=== PATIENT | male | born 1950 | race Caucasian/White ===

== ENCOUNTER 2021-09-01 20:28 | Emergency (ER) | payer MEDICAID ==
[~2021-09-01] VITALS: Ht 167.6 cm; Wt 65.0 kg
[2021-09-02] MEDS ORDERED: IBUPROFEN 800MG TABLET PO ONE (01:00)
[2021-09-02 04:23] VITALS: BP 146/77
== END 2021-09-02 04:24 | disposition home or self-care (01) ==
LOC: ER 20:28
DX: S09.8XXA Other specified injuries of head, initial encounter (principal); S16.1XXA Strain of muscle, fascia and tendon at neck level, initial encounter; M54.59 Other low back pain; M25.511 Pain in right shoulder; M79.662 Pain in left lower leg; V03.90XA Pedestrian on foot injured in collision with car, pick-up truck or van, unspecified whether traffic or nontraffic accident, initial encounter; Y93.01 Activity, walking, marching and hiking; Y92.488 Other paved roadways as the place of occurrence of the external cause; I10 Essential (primary) hypertension; E11.9 Type 2 diabetes mellitus without complications
CPT/HCPCS: 73060; 73552; 99284

== ENCOUNTER 2022-09-30 08:43 | Inpatient (IN) | payer MEDICAID ==
[~2022-09-30] VITALS: Ht 162.6 cm; Wt 63.5 kg
[2022-09-30] VITALS (47 sets, daily range): BP systolic 103–205; BP diastolic 53–115
[~2022-09-30 08:43] MED LIST: AMLO10TA80 PO; ASPI-1160 PO; CLOP-31 PO; HYDR-4135 PO
[2022-09-30 09:21] LABS: BASOPHILS % 0.8 % (0.0-2.0); EOSINOPHILS % 3.2 % (0.0-5.0); HEMATOCRIT. 31.3 % (42.0-52.0); LYMPHOCYTES % 26.2 % (20.0-50.0); MEAN CORPUSCULAR HEMOGLOBIN 31.2 pg (28.0-32.0); MEAN CORPUSCULAR VOLUME 88.5 fL (80.0-94.0); MEAN PLATELET VOLUME 7.4 fl (7.4-10.4); MONOCYTES % 7.8 % (2.0-8.0); PLATELET 302 x1000/uL (130-400); RED BLOOD CELL COUNT 3.54 mill/uL (4.7-6.1); RED CELL DISTRIBUTION WIDTH 13.8 % (11.6-14.6)
[2022-09-30 09:30] LABS: CHLORIDE 113 mEq/L (98-107)
[2022-09-30] MEDS ORDERED: FUROSEMIDE 40MG/4ML VIAL IVP ONE (09:30)
[2022-09-30] MEDS ORDERED: NITROGLYCERIN 50MG PREMIX 250 ML IV ONE (10:15)
[2022-09-30] MEDS ORDERED: ENOXAPARIN 80MG/0.8ML SYR SUBCUT ONE (10:15)
[2022-09-30] MEDS: NITROGLYCERIN 50MG PREMIX 250 ML IV NR ×2 (11:30→16:54)
[2022-09-30] MEDS ORDERED: ACETAMINOPHEN 325MG TABLET PO PRN (12:30)
[2022-09-30] MEDS ORDERED: MORPHINE SULFATE 2 MG/ML CPJ (NOT FOR IM USE) IV PRN (12:30)
[2022-09-30] MEDS ORDERED: DIPHENHYDRAMINE 50MG/ML VIAL IV PRN (12:30)
[2022-09-30] MEDS ORDERED: ONDANSETRON HCL 4MG/2ML INJ IV PRN (12:30)
[2022-09-30] MEDS ORDERED: IPRATROPIUM/ALBUTEROL 0.5-3(2.5)MG/3ML NEB HHN PRN (12:30)
[2022-09-30] MEDS ORDERED: NALOXONE HCL 0.4MG/ML VIAL IV PRN (12:45)
[2022-09-30] MEDS ORDERED: NITROGLYCERIN 50MG PREMIX 250 ML IV SCH (16:00)
[2022-09-30] MEDS: HYDRALAZINE HCL 50MG TABLET PO SCH ×2 (16:16→21:49)
[2022-09-30] MEDS ORDERED: NITROGLYCERIN 50MG PREMIX 250 ML IV PRN (16:24)
[2022-09-30] MEDS: FUROSEMIDE 40MG/4ML VIAL IV SCH (16:33)
[2022-10-01] VITALS (73 sets, daily range): BP systolic 76–164; BP diastolic 44–119
[2022-10-01] MEDS: HYDRALAZINE HCL 50MG TABLET PO SCH ×3 (05:50→21:48)
[2022-10-01 06:44] LABS: EOSINOPHILS % 3.3 % (0.0-5.0); HEMATOCRIT. 30.7 % (42.0-52.0); HEMOGLOBIN. 10.8 g/dL (14.0-18.0); LYMPHOCYTES % 29.8 % (20.0-50.0); MEAN CORPUSCULAR HEMOGLOBIN 30.8 pg (28.0-32.0); MEAN PLATELET VOLUME 7.8 fl (7.4-10.4); MONOCYTES % 8.4 % (2.0-8.0); NEUTROPHILS % 57.5 % (40.0-76.0); PLATELET 316 x1000/uL (130-400); RED BLOOD CELL COUNT 3.49 mill/uL (4.7-6.1); RED CELL DISTRIBUTION WIDTH 13.6 % (11.6-14.6)
[2022-10-01] MEDS: NITROGLYCERIN 50MG PREMIX 250 ML IV NR (07:03)
[2022-10-01 07:32] LABS: CHLORIDE 108 mEq/L (98-107)
[2022-10-01] MEDS: CLOPIDOGREL 75MG TABLET PO SCH (08:39)
[2022-10-01] MEDS: ASPIRIN 81MG TABLET PO SCH (08:40)
[2022-10-01] MEDS: SPIRONOLACTONE 25MG TABLET PO SCH (08:40)
[2022-10-01] MEDS: FUROSEMIDE 40MG/4ML VIAL IV SCH (08:40)
[2022-10-01] MEDS: LOSARTAN POTASSIUM 25 MG TABLET PO SCH (08:40)
[2022-10-01] MEDS: AMLODIPINE 10MG TABLET PO SCH (08:40)
[2022-10-01] MEDS: CARVEDILOL 3.125 MG TABLET PO SCH ×2 (08:40→21:48)
[2022-10-01] MEDS ORDERED: DEXTROSE 50% WATER 50ML SYRINGE IV PRN (10:30)
[2022-10-01] MEDS ORDERED: HYDRALAZINE 20MG/ML VIAL IV PRN (12:45)
[2022-10-01] MEDS ORDERED: BLOOD SUGAR DIAGNOSTIC STRIP TEST SCH (12:50)
[2022-10-01] MEDS: BLOOD SUGAR DIAGNOSTIC STRIP TEST SCH ×3 (12:50→21:38)
[2022-10-01] MEDS ORDERED: POTASSIUM CHLORIDE 20MEQ TABLET SR PO NR (13:00)
[2022-10-01] MEDS: INSULIN LISPRO 100 UNITS/ML SUBCUT SCH ×3 (13:20→21:47)
[2022-10-01] MEDS ORDERED: FUROSEMIDE 40MG/4ML VIAL IV SCH (18:00)
[2022-10-02] VITALS (11 sets, daily range): BP systolic 110–158; BP diastolic 52–91
[2022-10-02] MEDS: HYDRALAZINE HCL 50MG TABLET PO SCH ×2 (05:13→16:09)
[2022-10-02] MEDS: FUROSEMIDE 100MG/10ML VIAL IV SCH ×2 (06:14→17:09)
[2022-10-02] MEDS: BLOOD SUGAR DIAGNOSTIC STRIP TEST SCH ×3 (06:21→16:50)
[2022-10-02 06:23] LABS: BASOPHILS % 0.7 % (0.0-2.0); HEMATOCRIT. 29.2 % (42.0-52.0); HEMOGLOBIN. 10.3 g/dL (14.0-18.0); LYMPHOCYTES % 28.1 % (20.0-50.0); MEAN CORPUSCULAR HEMOGLOBIN 31.1 pg (28.0-32.0); MEAN CORPUSCULAR VOLUME 88.2 fL (80.0-94.0); MEAN PLATELET VOLUME 7.8 fl (7.4-10.4); MONOCYTES % 9.3 % (2.0-8.0); NEUTROPHILS % 58.9 % (40.0-76.0); PLATELET 265 x1000/uL (130-400); RED BLOOD CELL COUNT 3.31 mill/uL (4.7-6.1); RED CELL DISTRIBUTION WIDTH 13.8 % (11.6-14.6)
[2022-10-02 06:46] LABS: CHLORIDE 108 mEq/L (98-107)
[2022-10-02] MEDS: INSULIN LISPRO 100 UNITS/ML SUBCUT SCH ×3 (07:20→17:38)
[2022-10-02] MEDS ORDERED: LIDOCAINE HCL/PF 2% 20MG/ML 5 ML/VIAL ONE (08:44)
[2022-10-02] MEDS ORDERED: VERAPAMIL HCL 2.5 MG/1 ML 2ML VIAL IV ONE (08:44)
[2022-10-02] MEDS ORDERED: HEPARIN 1000 UNITS/ML 10ML ONE (08:44)
[2022-10-02] MEDS ORDERED: DIPHENHYDRAMINE 50MG/ML VIAL ONE (08:44)
[2022-10-02] MEDS ORDERED: IODIXANOL 320MG/ML 100 ML BOTTLE IV ONE (08:44)
[2022-10-02] MEDS ORDERED: MIDAZOLAM HCL 2 MG/2 ML VIAL ONE (08:45)
[2022-10-02] MEDS ORDERED: FENTANYL CITRATE/PF 50MCG/ML 2ML VIAL ONE (08:45)
[2022-10-02] MEDS ORDERED: NITROGLYCERIN 50MCG/ML 10ML VIAL (CATH LAB) IV ONE (10:00)
[2022-10-02] MEDS ORDERED: NICARDIPINE 100MCG/ML 10ML VIAL (CATH LAB) IV ONE (10:00)
[2022-10-02] MEDS ORDERED: ATROPINE SULFATE 1MG/10ML SYR IV PRN (10:30)
[2022-10-02] MEDS ORDERED: ACETAMINOPHEN 325MG TABLET PO PRN (10:30)
[2022-10-02] MEDS: ASPIRIN 81MG TABLET PO SCH (12:06)
[2022-10-02] MEDS: CLOPIDOGREL 75MG TABLET PO SCH (12:06)
[2022-10-02] MEDS: LOSARTAN POTASSIUM 25 MG TABLET PO SCH (12:07)
[2022-10-02] MEDS: AMLODIPINE 10MG TABLET PO SCH (12:07)
[2022-10-02] MEDS: CARVEDILOL 3.125 MG TABLET PO SCH (12:08)
[2022-10-02] MEDS: SPIRONOLACTONE 25MG TABLET PO SCH (12:08)
== END 2022-10-02 20:47 | disposition short-term general hospital (02) | DRG 192 ==
LOC: ER 08:53 → CVICU 12:09 → EDBEDREQ 12:11 → EDBEDREQTM 12:11 → EDBEDREQSVC 12:11 → 3WST 10-01 20:40
PROVIDERS: ADMIT Internal Medicine; ATTEND Internal Medicine
PROC: B2111ZZ Fluoroscopy of Multiple Coronary Arteries using Low Osmolar Contrast (ICD-10-PCS; principal; 2022-10-02)
PROC: 4A023N7 Measurement of Cardiac Sampling and Pressure, Left Heart, Percutaneous Approach (ICD-10-PCS; 2022-10-02)
PROC: 4A033BC Measurement of Arterial Pressure, Coronary, Percutaneous Approach (ICD-10-PCS; 2022-10-02)
DX: I11.0 Hypertensive heart disease with heart failure (principal); I21.4 Non-ST elevation (NSTEMI) myocardial infarction; I44.2 Atrioventricular block, complete; I16.1 Hypertensive emergency; I50.23 Acute on chronic systolic (congestive) heart failure; E11.9 Type 2 diabetes mellitus without complications; E78.5 Hyperlipidemia, unspecified; Z20.822 Contact with and (suspected) exposure to COVID-19; I25.10 Atherosclerotic heart disease of native coronary artery without angina pectoris; Z86.73 Personal history of transient ischemic attack (TIA), and cerebral infarction without residual deficits; Z95.0 Presence of cardiac pacemaker; Z90.49 Acquired absence of other specified parts of digestive tract; Z98.61 Coronary angioplasty status
CPT/HCPCS: 36415; 71045; 80048; 80053; 82962; 83036; 83880; 84484; 85025; 85347; 87426; 93005; 93308; 93458; 93571; 93572; 93970; 99291; C1769; C1887; C1893; J0360; J1200; J1644; J1650; J1815; J1940; J2250; J3010; J3490; Q9967

== ENCOUNTER 2025-04-15 16:45 | Inpatient (IN) | payer MEDICAID ==
[~2025-04-15] VITALS: Ht 162.6 cm; Wt 55.0 kg
[2025-04-15] VITALS (12 sets, daily range): BP systolic 52–78; BP diastolic 15–52; PULSE 0–133; RESP 0–43; TEMP 31.8–32.3592; O2SAT 76–100
[~2025-04-15 16:45] MED LIST changes: +COR12 PO; -HYDR-4135 PO; +HYDR50TA39 PO; +ISOS30TA91 PO; +LOSA25TA26 PO
[2025-04-15] MEDS ORDERED: NOREPINEPHRINE 8MG/250ML PMX 250 ML IV ONE (16:52)
[2025-04-15] MEDS: SODIUM CHLORIDE 0.9% (SEPSIS BOLUS) IV ONE (17:24)
[2025-04-15] MEDS: NOREPINEPHRINE 8MG/250ML PMX 250 ML IV ONE (17:28)
[2025-04-15 17:45] LABS: HEMATOCRIT. 30.6 % (42.0-52.0); HEMOGLOBIN. 9.6 g/dL (14.0-18.0); MEAN PLATELET VOLUME 9.5 fl (7.4-10.4); PLATELET 154 x1000/uL (130-400); RED BLOOD CELL COUNT 3.33 mill/uL (4.7-6.1); RED CELL DISTRIBUTION WIDTH 15.0 % (11.6-14.6)
[2025-04-15] MEDS: PROPOFOL 10MG/ML 100ML 100 ML IV SCH (17:52)
[2025-04-15 17:53] LABS: UREA NITROGEN BLOOD 57 mg/dL (9-23)
[2025-04-15] MEDS: PIPERACILLIN/TAZO 3.375G/50ML 50 ML IV ONE (17:53)
[2025-04-15 17:55] LABS: ASPARTATE AMINOTRANSFERASE 141 IU/L (<34); BILIRUBIN DIRECT 0.2 mg/dL (<=3.0); BILIRUBIN TOTAL 0.4 mg/dL (0.1-1.0); PROTEIN TOTAL 5.3 g/dL (6.0-8.3)
[2025-04-15 17:58] LABS: CREATININE 1.7 mg/dL (0.6-1.3)
[2025-04-15 17:59] LABS: TROPONIN I HIGH SENSITIVITY 72 ng/L (3.0-53)
[2025-04-15] MEDS ORDERED: ACETAMINOPHEN 650MG SUPP PR PRN (18:00)
[2025-04-15] MEDS ORDERED: ACETAMINOPHEN 650MG/20.3ML UDC NG PRN (18:00)
[2025-04-15 18:04] LABS: INR 1.2
[2025-04-15 18:07] LABS: BAND% 1.0 % (1.0-6.0); EOSINOPHILS % MANUAL 2.0 % (0.0-5.0); LYMPHOCYTES % MANUAL 68.0 % (20.0-50.0); MONOCYTES % MANUAL 2.0 % (2.0-8.0); NEUTROPHILS % MANUAL 27.0 % (45.0-75.0); PLATELET ESTIMATE NORMAL
[2025-04-15 18:11] LABS: BG DEOXYHEMOGLOBIN 4.7 % (0.0-5.0)
[2025-04-15] MEDS: VANCOMYCIN 1G PREMIX 200 ML IV ONE (18:59)
[2025-04-15] MEDS ORDERED: DOXYCYCLINE 100MG/100ML 100 ML IV SCH (19:15)
[2025-04-15] MEDS ORDERED: FENTANYL 2500MCG/250ML PMX 250 ML IV PRN ×2 (19:15→21:00)
[2025-04-15] MEDS: FENTANYL 2500MCG/250ML PMX 250 ML IV PRN (19:46)
[2025-04-15 19:54] LABS: CREATININE 1.7 mg/dL (0.6-1.3)
[2025-04-15 19:55] LABS: UREA NITROGEN BLOOD 60.0 mg/dL (9-23)
[2025-04-15 19:57] LABS: PHOSPHORUS 6.6 mg/dL (2.5-4.9)
[2025-04-15] MEDS ORDERED: DOCUSATE SODIUM 100MG CAPSULE PO PRN (20:30)
[2025-04-15] MEDS ORDERED: PROPOFOL 10MG/ML 100ML 100 ML IV PRN ×2 (20:30→21:15)
[2025-04-15] MEDS ORDERED: MAGNESIUM/ALUMINUM HYDROXIDE/SIMETHICONE 30ML UDC PO PRN (20:30)
[2025-04-15] MEDS ORDERED: SODIUM BICARBONATE 8.4% 50MEQ/50ML SYR IV NR (20:30)
[2025-04-15] MEDS ORDERED: GUAIFENESIN 200MG/10ML SUGAR FREE UDC PO PRN (20:30)
[2025-04-15] MEDS ORDERED: ACETAMINOPHEN 325MG TABLET PO PRN ×2 (20:30)
[2025-04-15] MEDS ORDERED: ONDANSETRON HCL 4MG/2ML INJ IV PRN (20:30)
[2025-04-15] MEDS ORDERED: DEXTROSE 50% WATER 50ML SYRINGE IV PRN ×2 (20:30→21:30)
[2025-04-15] MEDS ORDERED: IPRATROPIUM/ALBUTEROL 0.5-3(2.5)MG/3ML NEB NEB PRN (20:30)
[2025-04-15] MEDS ORDERED: DOPAMINE 400MG/250ML PREMIX 250 ML IV PRN (20:30)
[2025-04-15 20:33] LABS: TROPONIN I HIGH SENSITIVITY 124 ng/L (3.0-53)
[2025-04-15] MEDS ORDERED: NOREPINEPHRINE 8MG/250ML PMX 250 ML IV PRN (20:56)
[2025-04-15] MEDS ORDERED: VASOPRESSIN 20 UNIT in SODIUM CHLORIDE 0.9% 99 ML IV PRN (21:00)
[2025-04-15] MEDS ORDERED: EPINEPHRINE 5 MG in SODIUM CHLORIDE 0.9% 245 ML IV PRN (22:45)
[2025-04-15] MEDS ORDERED: IOHEXOL-350 100 ML BOTTLE ONE (23:33)
[2025-04-16] MEDS ORDERED: BLOOD SUGAR DIAGNOSTIC STRIP TEST SCH
[2025-04-16] MEDS ORDERED: PIPERACILLIN/TAZO 3.375G/50ML 50 ML IV SCH (06:00)
[2025-04-16] MEDS ORDERED: VANCOMYCIN 750MG PREMIX 150 ML IV SCH (07:00)
[2025-04-16] MEDS ORDERED: INSULIN LISPRO 100 UNITS/ML SUBCUT SCH (08:20)
[2025-04-16] MEDS ORDERED: PANTOPRAZOLE SODIUM 40 MG/VIAL IV SCH (09:00)
[2025-04-16] MEDS ORDERED: ENOXAPARIN 40MG/0.4ML SYR SUBCUT SCH (09:00)
== END 2025-04-15 22:50 | DRG 720 ==
LOC: ER 16:45 → CVICU 19:14 → EDBEDREQTM 19:16 → EDBEDREQ 19:16 → ENRESERV 20:26
PROVIDERS: ADMIT Hospitalist; ATTEND Hospitalist
PROC: 0BH17EZ Insertion of Endotracheal Airway into Trachea, Via Natural or Artificial Opening (ICD-10-PCS; principal; 2025-04-15)
PROC: 5A1935Z Respiratory Ventilation, Less than 24 Consecutive Hours (ICD-10-PCS; 2025-04-15)
PROC: 5A12012 Performance of Cardiac Output, Single, Manual (ICD-10-PCS; 2025-04-15)
DX: A41.9 Sepsis, unspecified organism (principal); I46.9 Cardiac arrest, cause unspecified; N17.0 Acute kidney failure with tubular necrosis; R65.21 Severe sepsis with septic shock; J96.01 Acute respiratory failure with hypoxia; G93.41 Metabolic encephalopathy; J18.9 Pneumonia, unspecified organism; I44.2 Atrioventricular block, complete; E11.22 Type 2 diabetes mellitus with diabetic chronic kidney disease; D64.9 Anemia, unspecified; I13.0 Hypertensive heart and chronic kidney disease with heart failure and stage 1 through stage 4 chronic kidney disease, or unspecified chronic kidney disease; N18.9 Chronic kidney disease, unspecified; E87.20 Acidosis, unspecified; E87.0 Hyperosmolality and hypernatremia; I21.A1 Myocardial infarction type 2; I25.10 Atherosclerotic heart disease of native coronary artery without angina pectoris; E87.5 Hyperkalemia; E87.8 Other disorders of electrolyte and fluid balance, not elsewhere classified; E11.51 Type 2 diabetes mellitus with diabetic peripheral angiopathy without gangrene; E78.00 Pure hypercholesterolemia, unspecified; I50.42 Chronic combined systolic (congestive) and diastolic (congestive) heart failure; Z95.1 Presence of aortocoronary bypass graft; Z95.0 Presence of cardiac pacemaker; Z98.61 Coronary angioplasty status
CPT/HCPCS: 31500; 31720; 36415; 71045; 71275; 74174; 80048; 80076; 80320; 82375; 82803; 82962; 83605; 83735; 83880; 84100; 84145; 84484; 85025; 85379; 86850; 86870; 86900; 92950; 93005; 94002; 94070; 94664; 98960; 99285; J1265; J2543; J2704; J3010; J3373; J3490; J7030; Q9967; G0480